=== PATIENT | male | born 1955 | race African-American/Black ===

== ENCOUNTER 2024-03-19 19:11 | Emergency (ER) | payer BC, MEDICAID, MEDICARE ==
[~2024-03-19] VITALS: Ht 170.2 cm; Wt 71.5 kg
[2024-03-19 19:34] VITALS: O2SAT 100
[2024-03-20 02:42] VITALS: BP 127/82; PULSE 86; RESP 18; TEMP 36.78072; O2SAT 98
== END 2024-03-20 03:49 | disposition left against medical advice (07) ==
LOC: ER 19:11
DX: R42 Dizziness and giddiness (principal); R53.1 Weakness; E11.22 Type 2 diabetes mellitus with diabetic chronic kidney disease; I13.2 Hypertensive heart and chronic kidney disease with heart failure and with stage 5 chronic kidney disease, or end stage renal disease; I25.2 Old myocardial infarction; I50.9 Heart failure, unspecified; N18.6 End stage renal disease; Z99.2 Dependence on renal dialysis; Z95.5 Presence of coronary angioplasty implant and graft; Z98.890 Other specified postprocedural states
CPT/HCPCS: 71045; 93005; 99284